=== PATIENT | male | born 1980 | race Caucasian/White ===

== ENCOUNTER 2018-09-01 00:43 | Emergency (ER) | payer MEDICAID ==
[~2018-09-01] VITALS: Ht 190.5 cm; Wt 105.1 kg
--- NOTE | 2018-09-01 01:15 | NUR ---
Pt c/o MENSAH x 3 hours, states "ran out of blood pressure meds a few months ago", SBP at home elevated. No neuro deficits noted, deneis n/v, denies vision changes, denies altered sensation, aox4, speaks in full complete sentences. [employer]. Placed on monitor, NSR. PIV placed and labs drawn. Will medicated for pain per MD orders, awaiting CT.
[2018-09-01] MEDS ORDERED: PROCHLORPERAZINE 5 MG/ML, 2ML ONE (01:26)
[2018-09-01] MEDS ORDERED: KETOROLAC 30 MG/1 ML ONE (01:26)
[2018-09-01 01:27] LABS: BASOPHILS # (AUTO) 0.03 x10^3/uL (0-0.1); BASOPHILS % (AUTO) 0 % (0-1); EOSINOPHILS % (AUTO) 4 % (1-7); LYMPHOCYTES # (AUTO) 2.38 x10^3/uL (1-3.4); LYMPHOCYTES % (AUTO) 32 % (22-44); MD NO; MEAN CORPUSCULAR HEMOGLOBIN 30.5 pg (27.5-34.5); MEAN CORPUSCULAR VOLUME 92.5 fL (81-97); MEAN PLATELET VOLUME 9.7 fL (7.4-10.4); MONOCYTES # (AUTO) 0.66 x10^3/uL (0.2-0.8); MONOCYTES % (AUTO) 9 % (2-9); NEUTROPHILS # (AUTO) 4.17 x10^3/uL (1.8-6.8); NEUTROPHILS % (AUTO) 55 % (42-75); PLATELET COUNT 168 x10^3/uL (130-400); RED BLOOD COUNT 6.03 x10^6/uL (4.38-5.82); RED CELL DISTRIBUTION WIDTH 13.9 % (9.4-14.8)
[2018-09-01] MEDS ORDERED: KETOROLAC 30 MG/1 ML IVPush ONE (01:30)
[2018-09-01] MEDS ORDERED: PROCHLORPERAZINE 5 MG/ML, 2ML IVPush ONE (01:30)
[2018-09-01] MEDS ORDERED: SODIUM CHLORIDE 0.9% 1,000ML IVBOLUS ONE (01:30)
[2018-09-01] MEDS ORDERED: ACETAMINOPHEN 500 MG TABLET PO ONE (01:30)
[2018-09-01 01:35] LABS: ALBUMIN 4.2 g/dL (3.4-5.0); ANION GAP 6 mmol/L (5-15); CALCIUM 9.1 mg/dL (8.5-10.1); CHLORIDE 107 mmol/L (98-107); CREATININE 1.36 mg/dL (0.7-1.3)
--- NOTE | 2018-09-01 01:36 | NUR ---
Pt taken to CT.
[2018-09-01 01:38] LABS: TROPONIN I < 0.015 ng/mL (0.000-0.045)
--- NOTE | 2018-09-01 01:58 | NUR ---
Back from CT, medicated per MD orders, SBP improved.
--- NOTE | 2018-09-01 02:13 | NUR ---
Report given to Keesha ORTIZ.
[2018-09-01] MEDS ORDERED: LISINOPRIL 20 MG TABLET PO ONE (02:30)
[2018-09-01] MEDS ORDERED: LISINOPRIL 20 MG TABLET ONE (02:35)
[2018-09-01] MEDS ORDERED: ACETAMINOPHEN 500 MG TABLET ONE (02:36)
--- NOTE | 2018-09-01 02:41 | NUR ---
FRANKY RN: PT MEDICATED PER APR.
[2018-09-01 03:56] VITALS: BP 142/89
== END 2018-09-01 03:57 | disposition home or self-care (01) ==
LOC: ED 03:51
DX: R51 Headache (principal); I10 Essential (primary) hypertension; E86.0 Dehydration; Z87.891 Personal history of nicotine dependence
CPT/HCPCS: 36415; 70450; 80048; 82040; 84484; 85025; 93005; 96361; 96374; 96375; 99284; J0780; J1885; J7030